=== PATIENT | female | born 1960 | race Caucasian/White ===

== ENCOUNTER 2020-06-30 11:57 | Emergency (ER) | payer SELFPAY ==
[~2020-06-30] VITALS: Ht 157.5 cm; Wt 63.5 kg
[~2020-06-30 11:57] MED LIST: CIPR500 PO; PHENA200 PO; SULTRIDS PO
[2020-06-30 13:08] LABS: Source, Urine Clean Catch
[2020-06-30 13:15] LABS: Bilirubin, Urine Neg (Neg); Blood, Urine 5+ (Neg); Glucose Qualitative, Urine Neg (Neg); Ketones, Urine Neg (Neg); Leukocyte Esterase, Urine 3+ (Neg); Nitrite, Urine Neg (Neg); Protein, Urine 2+ (Neg); Urobilinogen, Urine NORM (Normal)
[2020-06-30 13:31] LABS: Appearance, Urine Hazy (Clear); Color, Urine Yellow (P-Yellow)
[2020-06-30 13:32] LABS: White Blood Cells, Urine TNTC /hpf (0-5)
[2020-06-30 13:33] LABS: Bacteria Many /hpf
[2020-06-30 13:34] LABS: Squamous Epithelial Cells Few /hpf (Few); Transitional Epithelial Cells Few /hpf (0-Rare)
[2020-06-30] MEDS ORDERED: CEPH500 PO (13:34)
[2020-06-30] MEDS ORDERED: PHENA200 PO (13:34)
== END 2020-06-30 13:40 | disposition home or self-care (01) ==
LOC: ER 11:57
PROVIDERS: Emergency Medicine
DX: N39.0 Urinary tract infection, site not specified (principal); Z88.5 Allergy status to narcotic agent
CPT/HCPCS: 81001; 87077; 87086; 87186; 99283